=== PATIENT | male | born 1970 | race Caucasian/White ===

== ENCOUNTER 2018-12-15 18:05 | Emergency (ER) | payer OTHER, MEDICAID ==
[~2018-12-15] VITALS: Ht 190.5 cm; Wt 90.7 kg
[~2018-12-15 18:05] MED LIST: NOHOMEMEDICATIONS
[2018-12-15] MEDS ORDERED: MEDROLDOSEPACK PO (18:23)
[2018-12-15] MEDS ORDERED: MOBIC7.5 MG PO (18:23)
[2018-12-15] MEDS ORDERED: NORCO 5-325 TA1 EACH PO (18:23)
[2018-12-15 18:34] VITALS: BP 148/95
== END 2018-12-15 18:35 | disposition home or self-care (01) ==
LOC: M.ERS 18:05
DX: M54.42 Lumbago with sciatica, left side (principal)